=== PATIENT | male | born 1940 | race Caucasian/White ===

== ENCOUNTER 2017-11-22 08:17 | Day surgery (SDC) | payer MEDICARE, BC ==
[~2017-11-22 08:17] MED LIST: HYDROmorphone 1 MG/ML Syringe ONE; Lactated Ringers 1,000 ML IV SCH; Lactated Ringers 1,000 ML ONE; Lidocaine 1% 6 ML ONE; Lidocaine 1%/Sod Bicarbonate in NS 8.4% 1 ML Syringe IV PRN; Ondansetron 4 MG/2 ML SDV ONE; Propofol 200 MG/20 ML SDV ONE; Sodium Chloride 0.9% 10 ML Syringe FLUSH PRN; ceFAZolin 1 GM Vial ONE; fentaNYL 100 MCG/2 ML SDV ONE
--- NOTE | 2017-11-22 09:21 | PCM.PREANE ---
Preanesthetic Assessment - Anesthesia/Transfusion/Family Hx Anesthesia History: Prior Anesthesia Without Reaction Family History of Anesthesia Reaction: No Transfusion History: No Prior Transfusion(s) - Review of Systems General: No Symptoms Pulmonary: No Symptoms Cardiovascular: No Symptoms, Other (Heart attach 4 years ago, stents x2, no problems with chest pain since. ) Gastrointestinal: No Symptoms Neurological: No Symptoms Other: Reports: None - Physical Assessment NPO Status Date: 11/21/17 NPO Status Time: 18:00 Pulse: 62 O2 Sat by Pulse Oximetry: 97 Respiratory Rate: 16 Blood Pressure: 153/74 Temperature: 36.5 C Weight: 85 kg ASA Class: 2 Mental Status: Alert & Oriented x3 Airway Class: Mallampati = 2 Dentition: Reports: Normal Dentition, Grandin(s) Thyro-Mental Finger Breadths: 3 Mouth Opening Finger Breadths: 3 ROM/Head Extension: Full Lungs: Clear to Auscultation, Normal Respiratory Effort Cardiovascular: Regular Rate, Regular Rhythm - Allergies Allergies/Adverse Reactions: Allergies Allergy/AdvReac Type Severity Reaction Status Date / Time No Known Allergies Allergy Unverified 02/04/14 06:51 - Acknowledgements Anesthesia Type Planned: General Anesthesia Pt an Appropriate Candidate for the Planned Anesthesia: Yes Alternatives and Risks of Anesthesia Discussed w Pt/Guardian: Yes Pt/Guardian Understands and Agrees with Anesthesia Plan: Yes PreAnesthesia Questionnaire HEENT History: Reports: Impaired Vision, Other (See Below) Other HEENT History: wears glasses Cardiovascular History: Reports: High Cholesterol, Hypertension, [place], Stents Respiratory History: Reports: None Gastrointestinal History: Reports: None Genitourinary History: Reports: None 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 Musculoskeletal History: Reports: None Neurological History: Reports: None Psychiatric History: Reports: None Endocrine/Metabolic History: Reports: None Hematologic History: Reports: None Immunologic History: Reports: None Oncologic (Cancer) History: Reports: None Dermatologic History: Reports: None - Past Surgical History Head Surgeries/Procedures: Reports: None Cardiovascular Surgical History: Reports: None Respiratory Surgical History: Reports: None GI Surgical History: Reports: Hernia, Inguinal Female Surgical History: Reports: None Male Surgical History: Reports: None Endocrine Surgical History: Reports: None Neurological Surgical History: Reports: None Musculoskeletal Surgical History: Reports: None Oncologic Surgical History: Reports: None Dermatological Surgical History: Reports: None - SUBSTANCE USE Smoking Status *Q: Never Smoker Days Per Week of Alcohol Use: 1 Number of Drinks Per Day: 1 Total Drinks Per Week: 1 Recreational Drug Use History: No - HOME MEDS Home Medications: Home Meds Aspirin [Adult Low Dose Aspirin EC] 81 mg PO DAILY 02/26/14 [History] Clopidogrel Bisulfate [Clopidogrel] 75 mg PO DAILY 02/26/14 [History] Lisinopril [Prinivil] 5 mg PO DAILY 02/26/14 [History] Nitroglycerin [Nitrostat] 0.4 mg SL ASDIRECTED PRN 02/26/14 [History] atorvaSTATin [Lipitor] 40 mg PO BEDTIME 02/26/14 [History] Tamsulosin HCl [Tamsulosin HCl] 0.4 mg PO DAILY 11/21/17 [History] - CURRENT (IN HOUSE) MEDS Current Meds: Current Medications Lactated Ringer's (Ringers, Lactated) 1,000 mls @ 125 mls/hr IV ASDIRECTED N[facility]OL[facility]S Stop: 11/22/17 23:00 Lidocaine/Sodium Bicarbonate (Buffered Lidocaine 1% In Ns 8.4%) 0.25 ml IV ONETIME PRN PRN Reason: Prior to IV Start Stop: 11/22/17 18:00 Sodium Chloride (Saline Flush) 10 ml FLUSH ASDIRECTED PRN PRN Reason: Keep Vein Open Stop: 11/22/17 18:00 Discontinued Medications Bupivacaine HCl/Epinephrine Bitart (Marcaine 0.5%/Epinephrine 1:200,000) Confirm Administered Dose 50 ml .ROUTE .STK-MED ONE Stop: 11/22/17 08:51 Cefazolin Sodium (Ancef) Confirm Administered Dose 2 gm .ROUTE .STK-MED ONE Stop: 11/22/17 07:13 Fentanyl (Sublimaze) Confirm Administered Dose 100 mcg .ROUTE .STK-MED ONE Stop: 11/22/17 07:15 Hydromorphone HCl (Dilaudid) Confirm Administered Dose 1 mg .ROUTE .STK-MED ONE Stop: 11/22/17 07:14 Lidocaine HCl (Xylocaine-Mpf 1%) Confirm Administered Dose 6 mls @ as directed .ROUTE .STK-MED ONE Stop: 11/22/17 07:13 Lactated Ringer's (Ringers, Lactated) Confirm Administered Dose 1,000 mls @ as directed .ROUTE .STK-MED ONE Stop: 11/22/17 07:13 Lidocaine/Epinephrine (Xylocaine 1% With Epinephrine 1:100,000) Confirm Administered Dose 20 ml .ROUTE .STK-MED ONE Stop: 11/22/17 08:51 Ondansetron HCl (Zofran) Confirm Administered Dose 4 mg .ROUTE .STK-MED ONE Stop: 11/22/17 07:13 Propofol (Diprivan 20 Ml) Confirm Administered Dose 200 mg .ROUTE .STK-MED ONE Stop: 11/22/17 07:15
[2017-11-22] MEDS: Bupivacaine 0.5%/EPINEPHrine 1:200,000 50 ML MDV ONE ×2 (10:05→11:55)
[2017-11-22] MEDS: Lidocaine 1% with EPINEPHrine 1:100,000 20 ML MDV ONE ×2 (10:10→11:55)
[2017-11-22] MEDS ORDERED: Meperidine PF 50 MG/ML Syringe IVPUSH PRN (10:41)
[2017-11-22] MEDS ORDERED: fentaNYL 100 MCG/2 ML SDV IVPUSH PRN (10:41)
[2017-11-22] MEDS ORDERED: Ondansetron 4 MG/2 ML SDV IVPUSH PRN (10:41)
[2017-11-22] MEDS ORDERED: diphenhydrAMINE 50 MG/ML SDV IVPUSH PRN (10:41)
[2017-11-22] MEDS ORDERED: HYDROmorphone 0.5 MG/0.5 ML Syringe IVPUSH PRN (10:41)
[2017-11-22] MEDS ORDERED: fentaNYL 100 MCG/2 ML SDV ONE (11:04)
--- NOTE | 2017-11-22 12:19 | PCM.POSTAN ---
POST ANESTHESIA ASSESSMENT - MENTAL STATUS Mental Status: Alert, Oriented - VITAL SIGNS Pulse Rate: 56 SaO2: 92 Resp Rate: 8 Blood Pressure: 117/66 Temperature: 36.7 C - RESPIRATORY Respiratory Status: Respiratory Rate WNL, Airway Patent, O2 Saturation Stable, Supplemental Oxygen - CARDIOVASCULAR CV Status: Pulse Rate WNL, Blood Pressure Stable - GASTROINTESTINAL GI Status: No Symptoms - PAIN Pain Score: 0 - POST OP HYDRATION Hydration Status: Adequate & Stable
--- NOTE | 2017-11-22 12:32 | PCM.OPNOTE ---
- General Post-Op/Procedure Note Date of Surgery/Procedure: 11/22/17 Operative Procedure(s): Open left inguinal hernia repair with plug and mesh patch Findings: Incarcerated sliding left inguinal scrotal hernia containing sigmoid colon. There was extensive scarring from the previous repairs. There was no mesh observed. The fascia of the external oblique was absent. Pre Op Diagnosis: Recurrent symptomatic left inguinal hernia Post-Op Diagnosis: Recurrent sliding left inguinal scrotal hernia Anesthesia Technique: General LMA, Local Primary Surgeon: Flaco Ely Pathology: None EBL in mLs: 25 Complications: None Condition: Good Free Text/Narrative:: After adequate LMA general anesthesia was obtained the patient's left groin was prepped then draped sterilely for the procedure. The previous incision was used after local analgesia was given by taking a 15 blade into the skin. Metzenbaum scissors were used to dissect out the hernia which was just under the subcutaneous fat. I open the old incision throughout its entire length. I the adhesions between the subcutaneous tissues circumferentially and the hernia sac with a combination of blunt finger, Metzenbaum scissor, and cautery dissection. The spermatic cord was away from the herniation and controlled with a [place] drain. I opened the hernia sac and there was sigmoid colon along with sigmoid mesenteric fat. The hernia still was not reducible and because of this I made about a 1 cm incision just above the base of the herniation. I circumferentially the adhesions from the base of the herniation. With additional relaxation from anesthesia I was able to reduce the hernia. The floor of the canal was completely obliterated. A large plug was placed through the floor of the canal and secured in 4 positions with interrupted 0 Ethibond. A Prolene mesh was then placed on top of this securing it to the shelving edge of the inguinal ligament and the internal oblique fascia using 2-0 Prolene with a keyhole used for cord egress. 3 interrupted 0 Ethibond were placed lateral to the deep ring. The field was irrigated out. Hemostasis was obtained with cautery. Bayron's fascia was closed with a running 3-0 Vicryl. The skin was closed with a 4-0 subcuticular Vicryl. Steri-Strips and gauze were used for the dressing. There were no complications.
== END 2017-11-22 15:05 | disposition home or self-care (01) ==
LOC: JD.SDS 08:17
PROVIDERS: ATTEND Surgery
DX: K40.91 Unilateral inguinal hernia, without obstruction or gangrene, recurrent (principal); E78.00 Pure hypercholesterolemia, unspecified; I10 Essential (primary) hypertension; I25.2 Old myocardial infarction; Z79.899 Other long term (current) drug therapy; Z79.02 Long term (current) use of antithrombotics/antiplatelets; Z95.5 Presence of coronary angioplasty implant and graft; Z79.82 Long term (current) use of aspirin
CPT/HCPCS: 49521; C1781; J0690; J1170; J2405; J3010; J7120; 00830; J2001; J2704

== ENCOUNTER 2018-07-07 10:02 | Emergency (ER) | payer MEDICARE, BC | END 2018-07-07 10:30 | disposition home or self-care (01) | LOC: JD.ED 10:02 | DX: S61.411D Laceration without foreign body of right hand, subsequent encounter (principal); X58.XXXD Exposure to other specified factors, subsequent encounter ==

== ENCOUNTER 2019-01-10 08:44 | Day surgery (SDC) | payer MEDICARE, BC ==
[~2019-01-10 08:44] MED LIST changes: +Cefuroxime 10 MG/ML SYRINGE EYERT SCH; -HYDROmorphone 1 MG/ML Syringe ONE; -Lactated Ringers 1,000 ML IV SCH; -Lactated Ringers 1,000 ML ONE; -Lidocaine 1% 6 ML ONE; +Lidocaine 1% PF 2 ML SDV INJECT SCH; -Lidocaine 1%/Sod Bicarbonate in NS 8.4% 1 ML Syringe IV PRN; -Ondansetron 4 MG/2 ML SDV ONE; +Pilocarpine 4% Ophth Soln 15 ML Bot EYERT SCH; -Propofol 200 MG/20 ML SDV ONE; -Sodium Chloride 0.9% 10 ML Syringe FLUSH PRN; +Tropicamide 0.5% Ophth Soln 15 ML Bottle EYERT SCH; -ceFAZolin 1 GM Vial ONE; -fentaNYL 100 MCG/2 ML SDV ONE
[2019-01-10] MEDS: Polymyxin B/Trimethoprim 10 ML Bottle EYERT SCH ×3 (09:59→11:56)
--- NOTE | 2019-01-10 10:02 | PCM.PREANE ---
Preanesthetic Assessment - Anesthesia/Transfusion/Family Hx Anesthesia History: Prior Anesthesia Without Reaction Family History of Anesthesia Reaction: No Transfusion History: No Prior Transfusion(s) - Review of Systems General: No Symptoms Pulmonary: No Symptoms Cardiovascular: Other (s/p stents 4 years ago, HTN, denies cp) - Allergies Allergies/Adverse Reactions: Allergies Allergy/AdvReac Type Severity Reaction Status Date / Time No Known Allergies Allergy Verified 01/09/19 13:18 PreAnesthesia Questionnaire HEENT History: Reports: Cataract, Impaired Vision, Other (See Below) Other HEENT History: wears glasses Cardiovascular History: Reports: High Cholesterol, Hypertension, [place], Stents Respiratory History: Reports: None Gastrointestinal History: Reports: None Genitourinary History: Reports: None 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 Musculoskeletal History: Reports: None Neurological History: Reports: None Psychiatric History: Reports: None Endocrine/Metabolic History: Reports: None Hematologic History: Reports: None Immunologic History: Reports: None Oncologic (Cancer) History: Reports: None Dermatologic History: Reports: None - Past Surgical History Head Surgeries/Procedures: Reports: None Cardiovascular Surgical History: Reports: None, Coronary Artery Stent Respiratory Surgical History: Reports: None GI Surgical History: Reports: Hernia, Inguinal Male Surgical History: Reports: None Endocrine Surgical History: Reports: None Neurological Surgical History: Reports: None Musculoskeletal Surgical History: Reports: None Oncologic Surgical History: Reports: None Dermatological Surgical History: Reports: None - HOME MEDS Home Medications: Home Meds Aspirin [Adult Low Dose Aspirin EC] 81 mg PO DAILY 02/26/14 [History] Clopidogrel Bisulfate [Clopidogrel] 75 mg PO DAILY 02/26/14 [History] Lisinopril [Prinivil] 5 mg PO DAILY 02/26/14 [History] Nitroglycerin [Nitrostat] 0.4 mg SL ASDIRECTED PRN 02/26/14 [History] atorvaSTATin [Lipitor] 40 mg PO BEDTIME 02/26/14 [History] Tamsulosin HCl 0.4 mg PO DAILY 11/21/17 [History] - CURRENT (IN HOUSE) MEDS Current Meds: Current Medications Brimonidine Tartrate (Alphagan 0.2% Ophth Soln) 0 ml EYERT ASDIRECTED NICOL[facility]S Stop: 01/10/19 23:00 Cefuroxime Sodium (Zinacef) 0 mg EYERT ASDIRECTED N[facility] Stop: 01/10/19 23:00 Lidocaine HCl (Xylocaine-Mpf 1%) 0 ml INJECT ASDIRECTED N[facility]OL[facility]S Stop: 01/10/19 23:00 Phenylephrine HCl (Ed-Synephrine 2.5% Ophth Soln) 0 ml EYERT ASDIRECTED N[facility]S Stop: 01/10/19 23:00 Pilocarpine HCl (Pilocar 4% Ophth Soln) 0 ml EYERT ASDIRECTED [facility] Stop: 01/10/19 23:00 Polymyxin/Trimethoprim Sulfate (Polytrim Ophth Soln) 0 ml EYERT ASDIRECTED N[facility]S Stop: 01/10/19 23:00 Tetracaine HCl (Tetracaine 0.5% Steri-Unit Fernanda) 0 ml EYERT ASDIRECTED NICOL[facility]S Stop: 01/10/19 23:00 Tropicamide (Mydriacyl 1% Ophth Soln) 0 ml EYERT ASDIRECTED N[facility] Stop: 01/10/19 18:00 Discontinued Medications Tropicamide (Mydriacyl 0.5% Ophth Soln) 0 ml EYERT ASDIRECTED [facility] Stop: 01/10/19 23:00
[2019-01-10] MEDS: Brimonidine 0.2% Ophth Soln 5 ML Bottle EYERT SCH ×3 (10:04→11:56)
[2019-01-10] MEDS: Phenylephrine 2.5% Ophth Soln 2 ML Bot EYERT SCH ×5 (10:09→11:37)
[2019-01-10] MEDS: Tropicamide 1% Ophth Soln 15 ML Bottle EYERT SCH ×4 (10:14→11:07)
[2019-01-10] MEDS: Tetracaine HCl/PF 0.5% 4 ML Bottle EYERT SCH ×2 (11:23→11:44)
--- NOTE | 2019-01-10 11:58 | PCM48HPAN ---
Post Anesthesia Note - EVALUATION WITHIN 48HRS OF ANESTHETIC Vital Signs in Normal Range: Yes Patient Participated in Evaluation: Yes Respiratory Function Stable: Yes Airway Patent: Yes Cardiovascular Function Stable: Yes Hydration Status Stable: Yes Pain Control Satisfactory: Yes Nausea and Vomiting Control Satisfactory: Yes Mental Status Recovered: Yes
== END 2019-01-10 12:05 | disposition home or self-care (01) ==
LOC: JD.SDS 08:44
PROVIDERS: ATTEND Ophthalmology
DX: H25.813 Combined forms of age-related cataract, bilateral (principal); H16.223 Keratoconjunctivitis sicca, not specified as Sjogren's, bilateral; H16.103 Unspecified superficial keratitis, bilateral; H02.413 Mechanical ptosis of bilateral eyelids; H02.834 Dermatochalasis of left upper eyelid; H02.831 Dermatochalasis of right upper eyelid; H35.3131 Nonexudative age-related macular degeneration, bilateral, early dry stage; H35.363 Drusen (degenerative) of macula, bilateral; I10 Essential (primary) hypertension; E78.00 Pure hypercholesterolemia, unspecified; Z79.02 Long term (current) use of antithrombotics/antiplatelets; Z79.899 Other long term (current) drug therapy; Z83.518 Family history of other specified eye disorder
CPT/HCPCS: A9270-GY; C1780; J0697; J2001

== ENCOUNTER 2019-02-05 08:18 | Day surgery (SDC) | payer MEDICARE, BC ==
[2019-02-05] MEDS: Polymyxin B/Trimethoprim 10 ML Bottle EYELF SCH ×4 (09:00→10:57)
[2019-02-05] MEDS: Brimonidine 0.2% Ophth Soln 5 ML Bottle EYELF SCH ×4 (09:05→10:57)
--- NOTE | 2019-02-05 09:09 | PCM.PREANE ---
Preanesthetic Assessment - Anesthesia/Transfusion/Family Hx Anesthesia History: Prior Anesthesia Without Reaction Family History of Anesthesia Reaction: No Transfusion History: No Prior Transfusion(s) - Review of Systems General: No Symptoms Pulmonary: No Symptoms Cardiovascular: No Symptoms Gastrointestinal: No Symptoms Neurological: No Symptoms Other: Reports: None - Physical Assessment NPO Status Date: 02/04/19 NPO Status Time: 21:30 Pulse: 57 O2 Sat by Pulse Oximetry: 95 Respiratory Rate: 16 Blood Pressure: 139/84 Temperature: 97.6 C ASA Class: 2 Mental Status: Alert & Oriented x3 Airway Class: Mallampati = 2 Dentition: Reports: Normal Dentition Thyro-Mental Finger Breadths: 3 Mouth Opening Finger Breadths: 3 ROM/Head Extension: Full Lungs: Clear to Auscultation, Normal Respiratory Effort Cardiovascular: Regular Rate, Regular Rhythm - Allergies Allergies/Adverse Reactions: Allergies Allergy/AdvReac Type Severity Reaction Status Date / Time No Known Allergies Allergy Verified 02/04/19 14:40 - Acknowledgements Anesthesia Type Planned: MAC Pt an Appropriate Candidate for the Planned Anesthesia: Yes Alternatives and Risks of Anesthesia Discussed w Pt/Guardian: Yes Pt/Guardian Understands and Agrees with Anesthesia Plan: Yes PreAnesthesia Questionnaire HEENT History: Reports: Cataract, Impaired Vision, Other (See Below) Other HEENT History: wears glasses Cardiovascular History: Reports: High Cholesterol, Hypertension, [place] (2014), Stents Respiratory History: Reports: None Gastrointestinal History: Reports: None, GERD (pt states occas heartburn) Genitourinary History: Reports: None 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 Musculoskeletal History: Reports: None Neurological History: Reports: None Psychiatric History: Reports: None Endocrine/Metabolic History: Reports: None Hematologic History: Reports: None Immunologic History: Reports: None Oncologic (Cancer) History: Reports: None Dermatologic History: Reports: None - Past Surgical History Head Surgeries/Procedures: Reports: None Cardiovascular Surgical History: Reports: None, Coronary Artery Stent Respiratory Surgical History: Reports: None GI Surgical History: Reports: Hernia, Inguinal Male Surgical History: Reports: None Endocrine Surgical History: Reports: None Neurological Surgical History: Reports: None Musculoskeletal Surgical History: Reports: None Oncologic Surgical History: Reports: None Dermatological Surgical History: Reports: None - SUBSTANCE USE Smoking Status *Q: Never Smoker - HOME MEDS Home Medications: Home Meds Aspirin [Adult Low Dose Aspirin EC] 81 mg PO DAILY 05/07/14 [History] Clopidogrel Bisulfate [Clopidogrel] 75 mg PO DAILY 02/26/14 [History] Lisinopril [Prinivil] 5 mg PO DAILY 02/26/14 [History] Nitroglycerin [Nitrostat] 0.4 mg SL ASDIRECTED PRN 02/26/14 [History] atorvaSTATin [Lipitor] 40 mg PO BEDTIME 02/26/14 [History] Tamsulosin HCl 0.4 mg PO DAILY 11/21/17 [History] - CURRENT (IN HOUSE) MEDS Current Meds: Current Medications Brimonidine Tartrate (Alphagan 0.2% Ophth Soln) 0 ml EYELF ASDIRECTED N[facility]S Stop: 02/05/19 18:00 Cefuroxime Sodium (Zinacef) 0 mg EYELF ASDIRECTED [facility] Stop: 02/05/19 18:00 Lidocaine HCl (Xylocaine-Mpf 1%) 0 ml INJECT ASDIRECTED [facility] Stop: 02/05/19 18:00 Phenylephrine HCl (Ed-Synephrine 2.5% Ophth Soln) 0 ml EYELF ASDIRECTED [facility] Stop: 02/05/19 18:00 Pilocarpine HCl (Pilocar 4% Ophth Soln) 0 ml EYELF ASDIRECTED [facility] Stop: 02/05/19 18:00 Polymyxin/Trimethoprim Sulfate (Polytrim Ophth Soln) 0 ml EYELF ASDIRECTED [facility]S Stop: 02/05/19 18:00 Last Admin: 02/05/19 09:00 Dose: 1 drop Tetracaine HCl (Tetracaine 0.5% Steri-Unit Fernanda) 0 ml EYELF ASDIRECTED [facility] Stop: 02/05/19 18:00 Tropicamide (Mydriacyl 1% Ophth Soln) 0 ml EYELF ASDIRECTED N[facility]S Stop: 02/08/19 18:00
[2019-02-05] MEDS: Phenylephrine 2.5% Ophth Soln 2 ML Bot EYELF SCH ×6 (09:10→10:31)
[2019-02-05] MEDS: Tropicamide 1% Ophth Soln 15 ML Bottle EYELF SCH ×4 (09:15→09:55)
[2019-02-05] MEDS: Tetracaine HCl/PF 0.5% 4 ML Bottle EYELF SCH ×5 (10:00→10:46)
[2019-02-05] MEDS: Lidocaine 1% PF 2 ML SDV INJECT SCH ×2 (10:12→10:45)
[2019-02-05] MEDS: Cefuroxime 10 MG/ML SYRINGE EYELF SCH ×2 (10:13→10:56)
[2019-02-05] MEDS: Pilocarpine 4% Ophth Soln 15 ML Bot EYELF SCH ×2 (10:13→10:57)
--- NOTE | 2019-02-05 11:11 | PCM48HPAN ---
Post Anesthesia Note - EVALUATION WITHIN 48HRS OF ANESTHETIC Vital Signs in Normal Range: Yes Patient Participated in Evaluation: Yes Respiratory Function Stable: Yes Airway Patent: Yes Cardiovascular Function Stable: Yes Hydration Status Stable: Yes Pain Control Satisfactory: Yes Nausea and Vomiting Control Satisfactory: Yes Mental Status Recovered: Yes Pulse Rate: 57 Resp Rate: 16 Temperature: 97.6 C Blood Pressure: 139/84
== END 2019-02-05 11:08 | disposition home or self-care (01) ==
LOC: JD.SDS 08:18
PROVIDERS: ATTEND Ophthalmology
DX: H25.812 Combined forms of age-related cataract, left eye (principal); H02.834 Dermatochalasis of left upper eyelid; H02.831 Dermatochalasis of right upper eyelid; H02.413 Mechanical ptosis of bilateral eyelids; I10 Essential (primary) hypertension; E78.00 Pure hypercholesterolemia, unspecified; Z96.1 Presence of intraocular lens; Z79.899 Other long term (current) drug therapy
CPT/HCPCS: 66984; A9270; C1780; J0697; J2001

== ENCOUNTER 2020-04-22 00:50 | Emergency (ER) | payer MEDICARE, BC ==
--- NOTE | 2020-04-22 01:17 | EDM.PDOC ---
ED HPI GENERAL MEDICAL PROBLEM - General Chief Complaint: Genitourinary Problem Stated Complaint: unable to urinate Time Seen by Provider: 04/22/20 01:10 - History of Present Illness INITIAL COMMENTS - FREE TEXT/NARRATIVE: 79-year-old male presents the emergency room with difficulty voiding. Patient is noticed since this afternoon he has had difficulty getting his stream going the way he should. He is able to go but not the way he normally does. The patient has some discomfort with voiding. Patient is currently taken Flomax once daily. Patient denies any fevers or chills and really does not have any significant abdominal pain. Patient denies any other complaints at this time Bladder Pain Score (Numeric/FACES): 8 - Related Data Allergies Allergy/AdvReac Type Severity Reaction Status Date / Time No Known Allergies Allergy Verified 02/04/19 14:40 Home Meds: Home Meds Aspirin [Adult Low Dose Aspirin EC] 81 mg PO DAILY 02/26/14 [History] Clopidogrel Bisulfate [Clopidogrel] 75 mg PO DAILY 02/26/14 [History] Nitroglycerin [Nitrostat] 0.4 mg SL ASDIRECTED PRN 02/26/14 [History] atorvaSTATin [Lipitor] 40 mg PO BEDTIME 02/26/14 [History] lisinopriL [Prinivil] 5 mg PO DAILY 02/26/14 [History] Tamsulosin HCl 0.4 mg PO DAILY 11/21/17 [History] Past Medical History HEENT History: Reports: Cataract, Impaired Vision, Other (See Below) Other HEENT History: wears glasses Cardiovascular History: Reports: High Cholesterol, Hypertension, [place], Stents Respiratory History: Reports: None Gastrointestinal History: Reports: None, GERD Genitourinary History: Reports: None 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 Musculoskeletal History: Reports: None Neurological History: Reports: None Psychiatric History: Reports: None Endocrine/Metabolic History: Reports: None Hematologic History: Reports: None Immunologic History: Reports: None Oncologic (Cancer) History: Reports: None Dermatologic History: Reports: None - Past Surgical History Head Surgeries/Procedures: Reports: None Cardiovascular Surgical History: Reports: None, Coronary Artery Stent Respiratory Surgical History: Reports: None GI Surgical History: Reports: Hernia, Inguinal Male Surgical History: Reports: None Endocrine Surgical History: Reports: None Neurological Surgical History: Reports: None Musculoskeletal Surgical History: Reports: None Oncologic Surgical History: Reports: None Dermatological Surgical History: Reports: None Social & Family History - Caffeine Use Caffeine Use: Reports: Coffee ED ROS GENERAL - Review of Systems Review Of Systems: See Below Constitutional: Reports: No Symptoms Respiratory: Reports: No Symptoms, Cough GI/Abdominal: Reports: No Symptoms : Reports: Frequency ED EXAM, RENAL/ - Physical Exam Exam: See Below Exam Limited By: No Limitations General Appearance: Alert, No Apparent Distress Head: Atraumatic, Normocephalic Neck: Normal Inspection, Supple, Non-Tender, Full Range of Motion Respiratory/Chest: No Respiratory Distress, Lungs Clear, Normal Breath Sounds Cardiovascular: Regular Rate, Rhythm, No Edema, No Murmur GI/Abdominal: Normal Bowel Sounds, Soft, Non-Tender, Other (No apparent bladder distention with exam bladder is nontender) Back Exam: Normal Inspection. No: CVA Tenderness (L), CVA Tenderness (R) Neurological: Alert, Oriented, Normal Cognition Course - Vital Signs Last Recorded V/S: Last Vital Signs Temp 37.2 C 04/22/20 00:59 Pulse 60 04/22/20 00:59 Resp 16 04/22/20 00:59 BP 160/90 H 04/22/20 00:59 Pulse Ox 96 04/22/20 00:59 - Orders/Labs/Meds Labs: Laboratory Tests 04/22/20 Range/Units 01:20 Urine Color Yellow (Yellow) Urine Appearance Slt cloudy H (Clear) Urine pH 6.0 (5.0-8.0) Ur Specific [place] Pos 1.025 (1.005-1.030) Urine Protein Negative (Negative) Urine Glucose (UA) Trace H (Negative) Urine Ketones Negative (Negative) Urine Occult Blood 3+ H (Negative) Urine Nitrite Negative (Negative) Urine Bilirubin Negative (Negative) Urine Urobilinogen 0.2 (0.2-1.0) Ur Leukocyte Esterase Negative (Negative) Urine RBC 40-50 H (0-5) /hpf Urine WBC Not seen (0-5) /hpf Ur Epithelial Cells 0-5 (0-5) /hpf Urine Bacteria Few (FEW) /hpf Urine Mucus Many H (FEW) /hpf - Re-Assessments/Exams Free Text/Narrative Re-Assessment/Exam: 04/22/20 01:34 Patient's initial bladder scan was 200 to 250 cc. The patient then went to void , he was able to fill up the entire urine cup. Post void bladder scanning showed 70 cc residual. 04/22/20 03:08 Urinalysis shows some microscopic hematuria but really does not suggest an infectious process we will order a culture anyway. Departure - Departure Time of Disposition: 03:10 Disposition: Home, Self-Care 01 Clinical Impression: Urinary retention - Discharge Information Referrals: Chan Valentine MD [Primary Care Provider] - Forms: ED Department Discharge Additional Instructions: Return to the emergency room with any questions problems or worsening symptoms. Follow-up with your regular physician tomorrow as scheduled discuss increasing your Flomax dose. Also discuss there was a small amount of sugar noted in your urine. There was some blood in your urine, what we call microscopic hematuria. This needs to be followed up on. Urine culture is pending, albeit no other urinary signs of infection. Sepsis Event Note (ED) - Evaluation Sepsis Screening Result: No Definite Risk - Focused Exam Vital Signs: Vital Signs Temp Pulse Resp BP Pulse Ox 04/22/20 00:59 37.2 C 60 16 160/90 H 96
== END 2020-04-22 03:20 | disposition home or self-care (01) ==
LOC: JD.ED 00:50
DX: R33.9 Retention of urine, unspecified (principal); E78.00 Pure hypercholesterolemia, unspecified; I10 Essential (primary) hypertension; I25.2 Old myocardial infarction; Z95.5 Presence of coronary angioplasty implant and graft; Z79.82 Long term (current) use of aspirin; Z79.02 Long term (current) use of antithrombotics/antiplatelets; Z79.899 Other long term (current) drug therapy
CPT/HCPCS: 51798; 81001; 87086; 99282; 99283